=== PATIENT | male | born 1990 | race Caucasian/White ===

== ENCOUNTER 2016-07-22 01:52 | Emergency (ER) | payer OTHER ==
[2016-07-22] MEDS ORDERED: AMOXICILLIN TRIHYDRATE 250 MG CAPSULE ONE (04:24)
[2016-07-22] MEDS ORDERED: HYDROCODONE/ACETAMINOPHEN 5/325MG TABLET ONE (04:25)
== END 2016-07-22 05:00 | disposition home or self-care (01) ==
LOC: ED 01:52
DX: K04.7 Periapical abscess without sinus (principal); K02.9 Dental caries, unspecified
CPT/HCPCS: 99283 ×2; A9270 ×2